=== PATIENT | female | born 1950 | race Caucasian/White ===

== ENCOUNTER 2017-07-13 00:53 | Inpatient (IN) | payer OTHER ==
[~2017-07-13] VITALS: Ht 165.1 cm; Wt 61.0 kg
[2017-07-13] VITALS (27 sets, daily range): BP systolic 106–139; BP diastolic 62–80
[2017-07-13] MEDS ORDERED: MEROPENEM 1 GM VIAL ONE (01:22)
[2017-07-13] MEDS ORDERED: SODIUM CHLORIDE 0.9% 1000ML 2,000 ML IV ONE (01:22)
[2017-07-13 01:36] LABS: BASOPHILS % (AUTO) 0.3 % (0.0-5.0); EOSINOPHILS % (AUTO) 0.1 % (0.0-8.0); HEMATOCRIT 37.1 % (36-48); LYMPHOCYTES % (AUTO) 9.9 % (21.0-51.0); MEAN CORPUSCULAR HEMOGLOBIN 33.2 pg (27.0-33.0); MEAN CORPUSCULAR HGB CONC 34.3 g/dL (32.0-36.0); MONOCYTES % (AUTO) 4.5 % (3.0-13.0); NEUTROPHILS % (AUTO) 85.2 % (40.0-77.0); PLATELET COUNT (AUTO) 314 K/uL (130-400); RED BLOOD CELL COUNT(AUTO) 3.82 MIL/uL (4.00-5.50); RED CELL DISTRIBUTION WIDTH 13.6 % (11.0-15.5); WHITE BLOOD COUNT (AUTO) 16.9 K/uL (4.8-10.8)
[2017-07-13] MEDS ORDERED: ONDANSETRON HCL MDV 20ML 2 MG/ML VIAL ONE (01:43)
[2017-07-13] MEDS ORDERED: MORPHINE SULFATE 4 MG/1ML SYG ONE ×2 (01:43→09:40)
[2017-07-13 01:51] LABS: CARBON DIOXIDE 27 mmol/L (21-32); CHLORIDE 103 mmol/L (101-111); CREATININE 0.8 mg/dL (0.5-1.5); GLOMERULAR FILTR. RATE CALC 77 mL/min (>60); GLUCOSE,RANDOM 85 mg/dL (70-105); POTASSIUM 3.8 mmol/L (3.5-5.1); SODIUM SERUM 140 mmol/L (136-145); UREA NITROGEN, BLOOD 24 mg/dL (7-18)
[2017-07-13 01:53] LABS: INR 0.87 (0.85-1.15); PARTIAL THROMBOPLASTIN TIME 27.3 SEC (26.3-35.5); PROTHROMBIN TIME 9.2 SEC (9.6-11.6)
[2017-07-13] MEDS ORDERED: IOPAMIDOL-370 75 ML VIAL IV ONE (01:59)
[2017-07-13 02:06] LABS: ALANINE AMINOTRANSFERASE 35 U/L (12-78); ALBUMIN 3.3 g/dL (3.5-5.0); ASPARTATE AMINOTRANSFERASE 24 U/L (10-37); BILIRUBIN,TOTAL 0.2 mg/dL (0.2-1.0); CREATINE KINASE MB 2.1 ng/mL (0.5-3.6); CREATINE KINASE, TOTAL 51 U/L (21-232); MYOGLOBIN 44 ng/mL (10-92); TOTAL PROTEIN, SERUM 7.8 g/dL (6.0-8.3); TROPONIN I < 0.04 ng/mL (0.00-0.06)
[2017-07-13 03:18] LABS: APPEARANCE,URINE Turbid (CLEAR); BILIRUBIN,URINE Negative (NEGATIVE); COLOR,URINE Yellow (YELLOW); GLUCOSE, URINE (UA) Negative (NEGATIVE); KETONES,URINE Negative (NEGATIVE); LEUKOCYTE ESTERASE ,URINE Moderate (NEGATIVE); NITRATE,URINE Positive (NEGATIVE); OCCULT BLOOD,URINE Negative (NEGATIVE); PH,URINE 5.5 (5.0-8.0); PROTEIN,URINE Negative (NEGATIVE); UROBILINOGEN,URINE 0.2 mg/dL (0.2-1.0)
[2017-07-13 03:27] LABS: AMORPHOUS SEDIMENT,UR Moderate /LPF (None Seen); BACTERIA,URINE Rare /HPF (None Seen); MUCUS,URINE Rare LPF (None Seen); RBC,URINE None Seen /HPF (0-1); SQUAMOUS EPITHELIAL CELL,UR Rare /HPF (0-2)
[2017-07-13] MEDS ORDERED: ONDANSETRON HCL 4 MG/2 ML VIAL IVP PRN (04:45)
[2017-07-13] MEDS ORDERED: MORPHINE SULFATE 2 MG/ML 1ML SYG IM PRN (04:45)
[2017-07-13] MEDS ORDERED: ZOSYN 3.375GM+NS 50ML 50 ML IV SCH (05:00)
[2017-07-13] MEDS ORDERED: LABETALOL 20 MG/4 ML DISP.SYRIN IV PRN (05:15)
[2017-07-13] MEDS: SODIUM CHLORIDE 0.9% 1000ML 1,000 ML IV SCH ×3 (06:24→13:09)
[2017-07-13] MEDS: VANCOMYCIN 1GM+NS 250ML 250 ML IV SCH ×2 (06:24→17:14)
[2017-07-13] MEDS: ENOXAPARIN SODIUM 40 MG/0.4 ML SYRINGE SQ SCH (09:00)
[2017-07-13] MEDS: PANTOPRAZOLE SODIUM 40 MG TABLET.DR PO SCH (09:00)
[2017-07-13] MEDS: ZOSYN 3.375GM+NS 50ML 50 ML IV SCH ×2 (10:00→18:00)
[2017-07-13] MEDS ORDERED: LIDOCAINE PF 2% 5ML ABBOJECT ONE (12:40)
[2017-07-13] MEDS ORDERED: GLYCOPYRROLATE 0.2 MG/ML 5 ML VIAL ONE (12:40)
[2017-07-13] MEDS ORDERED: DEXAMETHASONE SOD PHOSPHATE 10MG/ML 1ML VIAL ONE (12:40)
[2017-07-13] MEDS ORDERED: FENTANYL CITRATE PF 50 MCG/1 ML 2ML VIAL ONE (12:41)
[2017-07-13] MEDS ORDERED: PROPOFOL 10 MG/ML 20ML VIAL IV ONE (12:41)
[2017-07-13] MEDS ORDERED: MIDAZOLAM HCL 1 MG/ML 2ML VIAL ONE (12:41)
[2017-07-13] MEDS ORDERED: MEPERIDINE-PF 25 MG/ML SYG ONE ×2 (13:22→13:33)
[2017-07-13] MEDS ORDERED: METOPROLOL TARTRATE 25 MG TAB PO SCH (15:30)
[2017-07-13] MEDS: METOPROLOL TARTRATE 25 MG TAB PO SCH (21:22)
[2017-07-14] VITALS (7 sets, daily range): BP systolic 120–140; BP diastolic 65–85
[2017-07-14] MEDS: ZOSYN 3.375GM+NS 50ML 50 ML IV SCH ×3 (01:55→18:35)
[2017-07-14] MEDS: MORPHINE SULFATE 4 MG/1ML SYG IVP PRN ×3 (01:56→23:33)
[2017-07-14 04:07] LABS: HEMATOCRIT 32.2 % (36-48); MEAN CORPUSCULAR HEMOGLOBIN 32.7 pg (27.0-33.0); MEAN CORPUSCULAR HGB CONC 33.4 g/dL (32.0-36.0); MEAN CORPUSCULAR VOLUME 97.7 fL (79-99); PLATELET COUNT (AUTO) 288 K/uL (130-400); RED CELL DISTRIBUTION WIDTH 13.8 % (11.0-15.5); WHITE BLOOD COUNT (AUTO) 12.8 K/uL (4.8-10.8)
[2017-07-14 04:11] LABS: CREATININE 0.8 mg/dL (0.5-1.5); MAGNESIUM 1.8 mg/dL (1.80-2.40); POTASSIUM 3.5 mmol/L (3.5-5.1)
[2017-07-14] MEDS: SODIUM CHLORIDE 0.9% 1000ML 1,000 ML IV SCH ×2 (04:27→20:50)
[2017-07-14] MEDS: VANCOMYCIN 1GM+NS 250ML 250 ML IV SCH ×2 (06:41→20:50)
[2017-07-14] MEDS: ENOXAPARIN SODIUM 40 MG/0.4 ML SYRINGE SQ SCH (10:28)
[2017-07-14] MEDS: PANTOPRAZOLE SODIUM 40 MG TABLET.DR PO SCH (10:28)
[2017-07-14] MEDS: METOPROLOL TARTRATE 25 MG TAB PO SCH ×2 (10:28→20:51)
[2017-07-14] MEDS ORDERED: LIDOCAINE HCL-MPF 1% 2ML VIAL IVP PRN (12:15)
[2017-07-14] MEDS ORDERED: POTASSIUM CHLORIDE 10% ELIXIR 20 MEQ/15 ML UDCUP PO PRN (12:15)
[2017-07-14] MEDS ORDERED: POTASSIUM CHLORIDE 20MEQ/100ML 100 ML IV PRN (12:15)
[2017-07-14] MEDS ORDERED: MAGNESIUM 2GM PREMIX 50ML 50 ML IV SCH (12:15)
[2017-07-14] MEDS: POTASSIUM CHLORIDE 20 MEQ ERTAB PO PRN (16:29)
[2017-07-15] MEDS ORDERED: ARTIFICAL TEARS SOL 15 ML OD PRN (00:30)
[2017-07-15] MEDS: ZOSYN 3.375GM+NS 50ML 50 ML IV SCH ×2 (03:15→09:12)
[2017-07-15 04:00] VITALS: BP 131/74
[2017-07-15 04:00] LABS: MEAN CORPUSCULAR HEMOGLOBIN 33.5 pg (27.0-33.0); MEAN CORPUSCULAR HGB CONC 34.8 g/dL (32.0-36.0); MEAN CORPUSCULAR VOLUME 96.1 fL (79-99); NUCLEATED RED BLOOD CELLS 0.1 % (0.0-0.19); PLATELET COUNT (AUTO) 277 K/uL (130-400); RED BLOOD CELL COUNT(AUTO) 3.01 MIL/uL (4.00-5.50); RED CELL DISTRIBUTION WIDTH 13.3 % (11.0-15.5); WHITE BLOOD COUNT (AUTO) 9.7 K/uL (4.8-10.8)
[2017-07-15 04:09] LABS: CREATININE 0.6 mg/dL (0.5-1.5); POTASSIUM 3.6 mmol/L (3.5-5.1)
[2017-07-15] MEDS: POTASSIUM CHLORIDE 20 MEQ ERTAB PO PRN ×2 (06:49→09:12)
[2017-07-15] MEDS: VANCOMYCIN 1GM+NS 250ML 250 ML IV SCH ×2 (06:49→17:42)
[2017-07-15 08:00] VITALS: BP 133/77
[2017-07-15] MEDS: METOPROLOL TARTRATE 25 MG TAB PO SCH ×2 (09:11→21:25)
[2017-07-15] MEDS: PANTOPRAZOLE SODIUM 40 MG TABLET.DR PO SCH (09:11)
[2017-07-15] MEDS: ENOXAPARIN SODIUM 40 MG/0.4 ML SYRINGE SQ SCH (09:11)
[2017-07-15 12:00] VITALS: BP 126/77
[2017-07-15 16:00] VITALS: BP 131/75
[2017-07-15 20:03] VITALS: BP 134/81
[2017-07-15 23:51] VITALS: BP 126/75
[2017-07-16] MEDS: MORPHINE SULFATE 4 MG/1ML SYG IVP PRN (00:49)
[2017-07-16 03:47] VITALS: BP 133/74
[2017-07-16 04:25] LABS: HEMATOCRIT 29.2 % (36-48); MEAN CORPUSCULAR HEMOGLOBIN 33.7 pg (27.0-33.0); MEAN CORPUSCULAR HGB CONC 34.8 g/dL (32.0-36.0); MEAN CORPUSCULAR VOLUME 96.8 fL (79-99); NUCLEATED RED BLOOD CELLS 0.1 % (0.0-0.19); PLATELET COUNT (AUTO) 288 K/uL (130-400); RED BLOOD CELL COUNT(AUTO) 3.01 MIL/uL (4.00-5.50); RED CELL DISTRIBUTION WIDTH 13.3 % (11.0-15.5); WHITE BLOOD COUNT (AUTO) 7.9 K/uL (4.8-10.8)
[2017-07-16 04:27] LABS: CREATININE 0.6 mg/dL (0.5-1.5)
[2017-07-16 04:30] LABS: % IRON SATURATION 24.6 % (22-44)
[2017-07-16] MEDS: VANCOMYCIN 1GM+NS 250ML 250 ML IV SCH (06:10)
[2017-07-16 08:00] VITALS: BP 132/64
[2017-07-16] MEDS: PANTOPRAZOLE SODIUM 40 MG TABLET.DR PO SCH (08:34)
[2017-07-16] MEDS: METOPROLOL TARTRATE 25 MG TAB PO SCH (08:34)
[2017-07-16] MEDS: ENOXAPARIN SODIUM 40 MG/0.4 ML SYRINGE SQ SCH (08:35)
[2017-07-16 12:00] VITALS: BP 129/77
[2017-07-16 16:00] VITALS: BP 145/77
[2017-07-16] MEDS ORDERED: ENOX40DI8 SQ (16:47)
[2017-07-16] MEDS ORDERED: METO25 PO (16:47)
[2017-07-16] MEDS ORDERED: PANT40TA PO (16:47)
[2017-07-16] MEDS ORDERED: TRAM50TA2 PO (18:36)
== END 2017-07-16 19:15 | DRG 854 ==
LOC: EDH 00:53 → 3AH 04:09
PROVIDERS: ADMIT Internal Medicine Nephrology; ATTEND Internal Medicine Nephrology
PROC: 0K9R0ZZ Drainage of Left Upper Leg Muscle, Open Approach (ICD-10-PCS; principal; 2017-07-13 13:00)
DX: A41.9 Sepsis, unspecified organism (principal); L02.416 Cutaneous abscess of left lower limb; N39.0 Urinary tract infection, site not specified; L03.116 Cellulitis of left lower limb; I10 Essential (primary) hypertension
CPT/HCPCS: 36415; 71045; 73701; 80048; 80053; 80202; 81001; 82550; 82553; 83540; 83550; 83605; 83735; 83874; 84484; 85025; 85027; 85610; 85730; 87040; 87070; 87076; 87077; 87088; 87186; 93005; 99291; A6266; A6453; C9113; J1100; J1650; J2001; J2175; J2185; J2250; J2270; J2543; J2704; J3010; J3370; J3475; J3490; J7030; Q9967